=== PATIENT | female | born 1955 | race Caucasian/White ===

== ENCOUNTER 2023-06-24 15:18 | Emergency (ER) | payer SELFPAY ==
[~2023-06-24] VITALS: Ht 149.9 cm; Wt 61.4 kg
[2023-06-24 15:35] LABS: COVID AG,FIA SOURCE NASAL SWAB
[2023-06-24 16:18] LABS: SARS-COV2 (COVID) ANTIGEN,FIA Negative (Negative)
[2023-06-24 16:21] LABS: INFLUENZA TYPE A NEGATIVE FOR TYPE A (NEGATIVE); INFLUENZA TYPE B NEGATIVE FOR TYPE B (NEGATIVE)
[2023-06-24 18:17] VITALS: BP 101/77; PULSE 80; RESP 18; TEMP 98.3
== END 2023-06-24 18:45 | disposition home or self-care (01) ==
LOC: EMS 15:18
DX: J06.9 Acute upper respiratory infection, unspecified (principal); Z20.822 Contact with and (suspected) exposure to COVID-19
CPT/HCPCS: 87804; 99283

== ENCOUNTER 2024-07-23 00:41 | Emergency (ER) | payer OTHER ==
[~2024-07-23] VITALS: Ht 154.9 cm; Wt 62.0 kg
[2024-07-23 00:48] VITALS: BP 160/67; PULSE 88; RESP 16; TEMP 98.3; O2SAT 100
== END 2024-07-23 01:37 | disposition left against medical advice (07) ==
LOC: EMS 00:41
DX: S70.361A Insect bite (nonvenomous), right thigh, initial encounter (principal); Z53.21 Procedure and treatment not carried out due to patient leaving prior to being seen by health care provider; W57.XXXA Bitten or stung by nonvenomous insect and other nonvenomous arthropods, initial encounter; Y93.89 Activity, other specified; Y92.89 Other specified places as the place of occurrence of the external cause; Y99.8 Other external cause status